=== PATIENT | male | born 1935 | race Caucasian/White ===

== ENCOUNTER 2018-05-06 21:37 | Emergency (ER) | payer MEDICARE, OTHER ==
[~2018-05-06] VITALS: Ht 170.2 cm; Wt 79.0 kg
[~2018-05-06 21:37] MED LIST changes: -PYRIDIUM200 MG PO
[2018-05-06] MEDS ORDERED: PYRIDIUM200 MG PO (22:37)
[2018-05-06 22:45] VITALS: BP 165/96
== END 2018-05-06 22:45 | disposition home or self-care (01) ==
LOC: ED 21:37
DX: N39.0 Urinary tract infection, site not specified (principal); N32.89 Other specified disorders of bladder; I48.91 Unspecified atrial fibrillation; Z85.46 Personal history of malignant neoplasm of prostate; Z85.51 Personal history of malignant neoplasm of bladder; R35.0 Frequency of micturition; B96.4 Proteus (mirabilis) (morganii) as the cause of diseases classified elsewhere

== ENCOUNTER → 2018-05-06 | Outpatient (REF) | payer MEDICARE, OTHER ==
[~2018-05-06] MED LIST: ASPIRIN LOW DOS81 M2 PO; CARDIZEM CD 180 PO; CORDARONE/200 MG/TAB PO; COUMADIN2.5 MG PO; COUMADIN5 MG PO; DIGOXIN0.25 MG PO; DOXYCYCL HYC100 M3 OR; LOPRESSOR 550 MG/TAB PO; LOPRESSOR50 MG PO; LOSARTAN POTASS50 MG PO; METOPROL TAR25 MG PO; NO HOME MEDS; PRILOSEC20 MG PO; PRILOSEC20 MG/CAP PO; PYRIDIUM200 MG PO; TESSALON200 MG OR; XARELTO15 MG PO
[2018-05-06 16:21] LABS: URINE BILIRUBIN - DIPSTICK NEGATIVE (NEGATIVE); URINE BLOOD DIPSTICK LARGE (NEGATIVE); URINE COLOR YELLOW; URINE GLUCOSE - DIPSTICK NEGATIVE (NEGATIVE); URINE KETONE NEGATIVE (NEGATIVE); URINE NITRITE - DIPSTICK NEGATIVE (Negative); URINE PH 5.5 (4.5-8.0); URINE PROTEIN - DIPSTICK NEGATIVE (NEG-TRACE); URINE UROBILINOGEN - DIPSTICK 0.2 E.U./dL (0.2)
[2018-05-06 16:24] LABS: URINE LEUK ESTERASE SMALL (NEGATIVE)
== END | disposition home or self-care (01) ==
LOC: LABSPEC 15:52
PROVIDERS: ATTEND Nurse Practitioner Family
DX: R35.0 Frequency of micturition (principal); B96.4 Proteus (mirabilis) (morganii) as the cause of diseases classified elsewhere

== ENCOUNTER 2022-04-18 07:17 | Emergency (ER) | payer MEDICARE, OTHER ==
[~2022-04-18] VITALS: Ht 167.6 cm; Wt 81.5 kg
[~2022-04-18 07:17] MED LIST changes: +PYRIDIUM200 MG PO
[2022-04-18 07:47] VITALS: BP 142/62
[2022-04-18] MEDS ORDERED: ASPIRIN81 MG PO (07:57)
[2022-04-18] MEDS ORDERED: LOSARTAN POTASS50 MG PO (07:58)
[2022-04-18] MEDS ORDERED: PREDNISONE5 MG PO (07:58)
[2022-04-18] MEDS ORDERED: SOLIFENACIN SUCC5 MG PO (07:59)
[2022-04-18] MEDS ORDERED: NORVASC5 M1 PO (07:59)
[2022-04-18] MEDS ORDERED: XALATAN0.005 % OU (08:00)
[2022-04-18] MEDS ORDERED: FAMOTIDINE20 M1 PO (08:00)
[2022-04-18 08:01] VITALS: BP 125/66
[2022-04-18 08:17] LABS: BASO% 0.4 % (0-3); EOS% 4.4 % (0-8); HEMATOCRIT 37.8 % (39.0-50.0); HEMOGLOBIN 11.8 g/dl (14.0-18.0); IMMATURE GRANULOCYTES 0.4 % (0.0-5.0); LYMPH% 10.3 % (15-41); MEAN CELL VOLUME 97.4 fL CALC (80.0-100.0); MEAN CORPUSCULAR HGB 30.4 pG CALC (26.0-32.0); MEAN CORPUSCULAR HGB CONC 31.2 g/dL CAL (32.0-36.0); MONO% 14.2 % (2-13); NEUT# 4.75 thou/uL (1.82-7.42); NEUT% 70.3 % (42-76); RED BLOOD COUNT 3.88 mill/uL (4.70-6.10); RED CELL DISTRI WIDTH 14.2 % (11.5-15.5)
[2022-04-18 08:29] LABS: ALBUMIN 3.8 g/dL (3.2-5.0); CREATININE 2.4 mg/dL (0.7-1.3); POTASSIUM 4.8 mmol/l (3.5-5.1); TOTAL PROTEIN 6.2 g/dL (6.3-8.2)
[2022-04-18 08:30] VITALS: BP 129/65
[2022-04-18 08:32] LABS: BILIRUBIN, TOTAL 0.7 mg/dL (0.0-1.4)
[2022-04-18 09:01] VITALS: BP 132/57
[2022-04-18] MEDS ORDERED: ROBITUSSIN AC10 ML PO ×2 (09:23→10:36)
[2022-04-18] MEDS ORDERED: MEDDOSEPAK PO (09:23)
[2022-04-18] MEDS ORDERED: KEFLEX500 MG PO (09:23)
[2022-04-18 09:30] VITALS: BP 136/61
[2022-04-18 09:34] VITALS: BP 136/61
== END 2022-04-18 09:29 | disposition home or self-care (01) ==
LOC: ED 07:17
PROVIDERS: Emergency Medicine
DX: J06.9 Acute upper respiratory infection, unspecified (principal); I48.91 Unspecified atrial fibrillation; Z20.822 Contact with and (suspected) exposure to COVID-19